=== PATIENT | male | born 2000 | race Caucasian/White ===

== ENCOUNTER 2021-08-14 18:00 | Emergency (ER) ==
[~2021-08-14] VITALS: Ht 172.7 cm; Wt 69.9 kg
[2021-08-14 18:01] VITALS: BP 139/65
== END 2021-08-14 19:13 | disposition left against medical advice (07) ==
LOC: M ED 18:00
DX: Z53.29 Procedure and treatment not carried out because of patient's decision for other reasons (principal)

== ENCOUNTER 2022-06-25 15:46 | Emergency (ER) | payer OTHER ==
[~2022-06-25] VITALS: Ht 175.3 cm; Wt 69.8 kg
[2022-06-25 16:54] LABS: HEMATOCRIT 41.5 % (42.0-52.0); HEMOGLOBIN 13.6 g/dl (13.5-17.5); MEAN CORPUSCULAR HEMOGLOBIN 29.6 pg (27.0-33.0); MEAN CORPUSCULAR HGB CONC 32.8 g/dl (32.0-36.5); MEAN CORPUSCULAR VOLUME 90.4 fl (80.0-96.0); PLATELET COUNT, AUTOMATED 285 10^3/uL (150-450); RED BLOOD COUNT 4.59 10^6/uL (4.30-6.10); WHITE BLOOD COUNT 10.2 10^3/uL (4.0-10.0)
[2022-06-25 17:27] LABS: RSV AMPLIFICATION NEGATIVE (NEGATIVE)
[2022-06-25 17:42] LABS: ACETAMINOPHEN LEVEL < 2.0 UG/ML (10.0-20.0); ALBUMIN 4.3 G/DL (3.2-5.2); ALT/SGPT 17 U/L (7.0-40); BILIRUBIN,DIRECT 0.3 MG/DL (<0.4); BILIRUBIN,TOTAL 0.8 MG/DL (0.3-1.2); BLOOD UREA NITROGEN 14 MG/DL (9-23); CALCIUM LEVEL 9.6 MG/DL (8.5-10.1); CARBON DIOXIDE LEVEL 30 MMOL/L (20-31); CHLORIDE LEVEL 103 MMOL/L (98-107); CREATININE FOR GFR 0.93 MG/DL (0.70-1.30); ETHYL ALCOHOL (ETHANOL) 0.006 % (0.000-0.010); GLOMERULAR FILTRATION RATE > 60.0 (>60); GLUCOSE, FASTING 96 MG/DL (60-100); POTASSIUM SERUM 4.4 MMOL/L (3.5-5.1); SODIUM LEVEL 141 MMOL/L (136-145); THYROID STIMULATING HORMONE 1.069 uIU/ML (0.55-4.78); TOTAL PROTEIN 6.8 G/DL
[2022-06-25 18:28] LABS: SALICYLATE LEVEL < 1.7 MG/DL (<30)
[2022-06-25 18:47] LABS: AMPHETAMINES LEVEL URINE NEGATIVE (NEGATIVE); BARBITURATES URINE NEGATIVE (NEGATIVE); BENZODIAZEPINES URINE NEGATIVE (NEGATIVE); CANNABINOIDS URINE NEGATIVE (NEGATIVE); COCAINE METABOLITE URINE NEGATIVE (NEGATIVE); METHADONE URINE NEGATIVE (NEGATIVE); OPIATES URINE NEGATIVE (NEGATIVE); PHENCYCLIDINE URINE NEGATIVE (NEGATIVE)
[2022-06-25 21:20] VITALS: BP 127/83
== END 2022-06-25 22:01 | disposition home or self-care (01) ==
LOC: M ED 15:46
DX: F32.9 Major depressive disorder, single episode, unspecified (principal); Z73.3 Stress, not elsewhere classified